=== PATIENT | female | born 1950 | race Two or more races ===

== ENCOUNTER 2023-06-28 16:31 | Emergency (ER) | payer MEDICAID ==
[~2023-06-28] VITALS: Ht 142.2 cm; Wt 54.3 kg
--- NOTE | 2023-06-28 17:00 | NUR ---
I have reviewed and agree with all interventions, assessments performed and documented by SHILA Mendosa.
[2023-06-28] MEDS ORDERED: LIDOcaine/epinephrine/tetracaine TOPICAL sol 3 ML syringe TOP ONE (17:05)
[2023-06-28] MEDS ORDERED: TETanus/Pertussis (Acell)/Diphther VAC/PF (Tdap-Adult) 0.5ml syringe IMVAC ONE (17:05)
[2023-06-28] MEDS ORDERED: ACET-1074 PO (18:04)
[2023-06-28] MEDS ORDERED: acetaminophen 325mg tablet PO ONE (18:15)
--- NOTE | 2023-06-28 18:30 | NUR ---
tech applied bandaid over dermabonded lac, tech then placed finger cage over thumb and taped inot place with silk tape. GAS OR [employer]ROLE[employer] OPERATOR checked over tech splint and approved it.
[2023-06-28 18:43] VITALS: BP 150/80; PULSE 82; RESP 17; TEMP 97.9; O2SAT 96
== END 2023-06-28 20:10 | disposition home or self-care (01) ==
LOC: ER 16:33
DX: S61.012A Laceration without foreign body of left thumb without damage to nail, initial encounter (principal); W24.1XXA Contact with transmission devices, not elsewhere classified, initial encounter; Y93.89 Activity, other specified; Y92.89 Other specified places as the place of occurrence of the external cause; Y99.8 Other external cause status
CPT/HCPCS: 12001; 73140; 90471; 90715; 99283; J3490; A6449